=== PATIENT | female | born 1935 | race Caucasian/White ===

== ENCOUNTER 2016-05-09 09:30 | Outpatient (CLI) | payer MEDICARE, OTHER ==
[2016-05-09 12:45] LABS: #Basophils 0.1 thou/uL (0.0-0.2); #Eosinphils 0.2 thou/uL (0.0-0.7); #Lymphocytes 1.6 thou/uL (1.20-3.40); #Monocytes 0.5 thou/uL (0.11-0.59); #Neutrophils 4.1 thou/uL (1.40-6.50); %Basophils 1.6 % (0.0-1.0); %Eosinophils 3.2 % (0.0-10.0); %Lymphocytes 24.5 % (21.0-51.0); %Monocytes 7.1 % (0.0-10.0); %Neutrophils 63.7 % (42.0-75.0); Hemoglobin 12.6 g/dL (12.0-16.0); Mean Corpuscular HGB CONC 32.6 g/dL (32.0-36.0); Mean Corpuscular Hemoglobin 31.2 pg (27.0-31.0); Mean Corpuscular Volume 95.6 fl (81.0-99.0); Mean Platelet Volume 8.1 fL (7.4-10.4); Platelet Count 197 thou/uL (130-400); RBC Distribution Width 13.3 % (11.5-14.5); Red Blood Cell (RBC) Count 4.03 mill/uL (4.20-5.40); White Blood Cell (WBC) Count 6.4 thou/uL (4.8-10.8)
[2016-05-09 13:09] LABS: ALT (SGPT) 15 U/L (0-55); AST (SGOT) 19 U/L (5-34); Alkaline Phosphatase 68 U/L (40-150); Anion Gap 13 mmol/L (10-20); BUN (Urea Nitrogen) 21 mg/dL (9.8-20.1); Bilirubin, Direct 0.1 mg/dL (0.1-0.3); Bilirubin, Total 0.3 mg/dL (0.2-1.2); Calc. Creatinine Clearance 0 mL/min (70-130); Calcium 9.5 mg/dL (7.8-10.44); Carbon Dioxide 24 mmol/L (23-31); Cardiac Risk 3.5 (Less than 4.5); Chloride 108 mmol/L (98-107); Cholesterol 199 mg/dL (< 200 Desired); Estimated GFR-MDRD 55; Glucose 87 mg/dL (83-110); HDL Cholesterol 57 mg/dL (>60 Neg Risk); LDL Cholesterol, Calculated 120 mg/dL; Potassium 4.2 mmol/L (3.5-5.1); Protein, Total 6.3 g/dL (5.8-8.1); Sodium 141 mmol/L (136-145); Triglycerides 108 mg/dL (Less than 150)
[2016-05-09 13:42] LABS: Hemoglobin A1c 5.9 % (4.0-6.0)
== END 2016-05-09 09:31 | disposition home or self-care (01) ==
LOC: NAVSJIPCSP 09:30
PROVIDERS: ATTEND Nurse Practitioner Family
DX: Z51.89 Encounter for other specified aftercare (principal); E03.9 Hypothyroidism, unspecified; I25.10 Atherosclerotic heart disease of native coronary artery without angina pectoris
CPT/HCPCS: 36415; 80048; 80061; 80076; 83036; 84443; 85025

== ENCOUNTER 2016-08-09 08:31 | Outpatient (CLI) | payer MEDICARE ==
[2016-08-09 12:29] LABS: #Basophils 0.1 thou/uL (0.0-0.2); #Eosinphils 0.2 thou/uL (0.0-0.7); #Lymphocytes 1.2 thou/uL (1.20-3.40); #Monocytes 0.3 thou/uL (0.11-0.59); %Basophils 1.9 % (0.0-1.0); %Eosinophils 3.6 % (0.0-10.0); %Lymphocytes 24.8 % (21.0-51.0); %Monocytes 6.8 % (0.0-10.0); %Neutrophils 62.9 % (42.0-75.0); Hemoglobin 13.7 g/dL (12.0-16.0); Mean Corpuscular HGB CONC 31.9 g/dL (32.0-36.0); Mean Corpuscular Hemoglobin 29.5 pg (27.0-31.0); Mean Corpuscular Volume 92.5 fl (81.0-99.0); Mean Platelet Volume 7.6 fL (7.4-10.4); Platelet Count 210 thou/uL (130-400); RBC Distribution Width 13.1 % (11.5-14.5); Red Blood Cell (RBC) Count 4.63 mill/uL (4.20-5.40); White Blood Cell (WBC) Count 4.8 thou/uL (4.8-10.8)
[2016-08-09 12:41] LABS: Bilirubin Negative (Negative); Blood, Urine Negative (Negative); Clarity Clear (Clear); Glucose, Urine (Dipstick) Negative (Negative); Leukocyte Small (Negative); Nitrite Negative (Negative); Protein, Urine (Dipstick) Negative (Neg-Trace); Urobilinogen 0.2 mg/dL (0.2-1.0); pH, Urine 5.5 (5.0-9.0)
[2016-08-09 12:49] LABS: ALT (SGPT) 23 U/L (8-55); AST (SGOT) 25 U/L (5-34); Albumin 4.3 g/dL (3.4-4.8); Alkaline Phosphatase 73 U/L (40-150); Anion Gap 17 mmol/L (10-20); BUN (Urea Nitrogen) 20 mg/dL (9.8-20.1); Bilirubin, Direct 0.1 mg/dL (0.1-0.3); Bilirubin, Total 0.3 mg/dL (0.2-1.2); Calc. Creatinine Clearance 0 mL/min (70-130); Calcium 9.2 mg/dL (7.8-10.44); Carbon Dioxide 21 mmol/L (23-31); Chloride 107 mmol/L (98-107); Cholesterol 246 mg/dl (< 200 Desired); Estimated GFR-MDRD 53; Glucose 97 mg/dL (83-110); HDL Cholesterol 61 mg/dL (>60 Neg Risk); LDL Cholesterol, Calculated 166 mg/dL; Potassium 4.3 mmol/L (3.5-5.1); Protein, Total 6.7 g/dL (6.0-8.3); Sodium 141 mmol/L (136-145); Triglycerides 96 mg/dL (Less than 150)
[2016-08-09 13:03] LABS: Hemoglobin A1c 5.7 % (4.0-6.0)
[2016-08-09 13:29] LABS: RBC/HPF 0-3 HPF (0-3); Squamous Epithelial 0-3 HPF (0-3); WBC/HPF 0-3 HPF (0-3)
[2016-08-09 13:30] LABS: Bacteria/HPF Rare-Few HPF (None Seen); Transitional Epithelial 0-3 HPF (0-3)
== END 2016-08-09 08:32 | disposition home or self-care (01) ==
LOC: NAVSJIPCSP 08:31
PROVIDERS: ATTEND Family Medicine
DX: E03.9 Hypothyroidism, unspecified (principal); I25.10 Atherosclerotic heart disease of native coronary artery without angina pectoris; M35.3 Polymyalgia rheumatica; Z79.899 Other long term (current) drug therapy
CPT/HCPCS: 36415; 80048; 80061; 80076; 81003; 81015; 83036; 84443; 85025

== ENCOUNTER 2018-05-31 11:56 | Emergency (ER) | payer MEDICARE ==
[2018-05-31 13:00] LABS: #Basophils 0.1 thou/uL (0.0-0.2); #Eosinphils 0.2 thou/uL (0.0-0.7); #Lymphocytes 1.3 thou/uL (1.20-3.40); #Monocytes 0.5 thou/uL (0.11-0.59); #Neutrophils 4.2 thou/uL (1.40-6.50); %Basophils 1.5 % (0.0-1.0); %Eosinophils 2.5 % (0.0-10.0); %Lymphocytes 20.1 % (21.0-51.0); %Neutrophils 67.8 % (42.0-75.0); Hemoglobin 14.8 g/dL (12.0-16.0); Mean Corpuscular HGB CONC 31.7 g/dL (32.0-36.0); Mean Corpuscular Hemoglobin 30.6 pg (27.0-31.0); Mean Corpuscular Volume 96.6 fL (78.0-98.0); Mean Platelet Volume 7.8 fL (7.4-10.4); Platelet Count 143 thou/uL (130-400); RBC Distribution Width 11.9 % (11.5-14.5); Red Blood Cell (RBC) Count 4.82 mill/uL (4.20-5.40); White Blood Cell (WBC) Count 6.2 thou/uL (4.8-10.8)
[2018-05-31 13:17] LABS: ALT (SGPT) 28 U/L (8-55); AST (SGOT) 30 U/L (5-34); Albumin 4.6 g/dL (3.4-4.8); Alkaline Phosphatase 49 U/L (40-150); Anion Gap 14 mmol/L (10-20); BUN (Urea Nitrogen) 21 mg/dL (9.8-20.1); Bilirubin, Total 0.5 mg/dL (0.2-1.2); Calc. Creatinine Clearance 0 mL/min (70-130); Calcium 9.9 mg/dL (7.8-10.44); Carbon Dioxide 26 mmol/L (23-31); Chloride 105 mmol/L (98-107); Estimated GFR-MDRD 51; Globulin 2.5 g/dL (2.4-3.5); Glucose 94 mg/dL (83-110); Potassium 4.1 mmol/L (3.5-5.1); Protein, Total 7.1 g/dL (6.0-8.3); Sodium 141 mmol/L (136-145)
--- NOTE | 2018-05-31 13:21 | CT ---
CT Brain WO Con: 05/31/2018 12:42 PM CLINICAL HISTORY: Syncope. COMPARISON: None. FINDINGS: Hemorrhage: None. Ventricular system: Enlarged, likely due to compensatory dilatation as result of moderate global atro phy and periventricular white matter disease. Cerebral parenchyma: Microvascular ischemic disease. 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 Midline shift: None. Mass: No mass effect. Calvarium: Normal. Visualized Paranasal sinuses: Clear. 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 IMPRESSION: No acute intracranial hemorrhage or mass effect. Global atrophy and ventriculomegaly. Moderate chronic ischemic disease. 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
--- NOTE | 2018-05-31 13:27 | RAD ---
XR Hip Lt 2-3 View: 05/31/2018 12:43 PM CLINICAL INDICATION: Injury with pain COMPARISON: 01/06/2016 FINDINGS: Fracture:No fracture. Arthropathy:Moderate arthropathy. Incidental findings:Partially imaged hardware at the low lumbar spine IMPRESSION: 1. No acute osseous abnormality.
--- NOTE | 2018-05-31 13:28 | RAD ---
XR Lumbar Spine 2 Or 3 View: 05/31/2018 12:43 PM CLINICAL INDICATION: Fall with low back pain COMPARISON: None. FINDINGS: Fracture:No fracture. Multilevel posterior fusion spans L4-S1, with intervening disc space prostheses. Incidental findings:Atherosclerosis. Metallic clips of right upper abdomen. Levoscoliosis of lumbar spine present. IMPRESSION: 1. No acute osseous abnormality.
[2018-05-31 13:53] LABS: Bilirubin Negative (Negative); Blood, Urine Trace (Negative); Glucose, Urine (Dipstick) Negative (Negative); Leukocyte Small (Negative); Nitrite Negative (Negative); Protein, Urine (Dipstick) Negative (Neg-Trace); Specific Gravity, Urine 1.015 (1.005-1.030); Urobilinogen 0.2 mg/dL (0.2-1.0)
[2018-05-31 13:56] LABS: Clarity SL HAZY (Clear)
[2018-05-31 14:02] LABS: Bacteria/HPF 4+ HPF (None Seen); RBC/HPF 0-3 HPF (0-3); Renal Epithelial 0-3 HPF (0-3); Squamous Epithelial 0-3 HPF (0-3); WBC/HPF 0-3 HPF (0-3)
[2018-05-31] MEDS ORDERED: Cipro 250 MG TAB ONE (14:06)
== END 2018-05-31 14:26 | disposition home or self-care (01) ==
LOC: NAV ERS 11:56
DX: S70.02XA Contusion of left hip, initial encounter (principal); S70.312A Abrasion, left thigh, initial encounter; E86.0 Dehydration; N39.0 Urinary tract infection, site not specified; E78.5 Hyperlipidemia, unspecified; I10 Essential (primary) hypertension; Z86.73 Personal history of transient ischemic attack (TIA), and cerebral infarction without residual deficits; K21.9 Gastro-esophageal reflux disease without esophagitis; Z79.899 Other long term (current) drug therapy; Z79.82 Long term (current) use of aspirin; W22.8XXA Striking against or struck by other objects, initial encounter
CPT/HCPCS: 70450; 72100; 80053; 81003; 81015; 84484; 85025; 87077; 87086; 87186; 93005

== ENCOUNTER 2018-07-19 20:13 | Emergency (ER) | payer MEDICARE ==
--- NOTE | 2018-07-19 21:09 | RAD ---
CHEST TWO VIEW 07/19/18 HISTORY: Cough. COMPARISON: Chest radiograph May 2017. FINDINGS: The lungs are mildly hyperinflated. No pneumothorax. No effusion. Heart size upper limits of normal. Dual lead pacer in good position. No osseous abnormality. IMPRESSION: No acute intrathoracic abnormality. POS: HOME
[2018-07-19] MEDS ORDERED: Azithromycin 250 MG TAB ONE (21:12)
[2018-07-19] MEDS ORDERED: methylPREDNISolone Acetate 40 mg/ml Vial ONE (21:12)
== END 2018-07-19 21:40 | disposition home or self-care (01) ==
LOC: NAV ERS 20:13
DX: J20.8 Acute bronchitis due to other specified organisms (principal); E03.9 Hypothyroidism, unspecified; E78.5 Hyperlipidemia, unspecified; I10 Essential (primary) hypertension; K21.9 Gastro-esophageal reflux disease without esophagitis; Z86.73 Personal history of transient ischemic attack (TIA), and cerebral infarction without residual deficits; Z79.82 Long term (current) use of aspirin; Z79.899 Other long term (current) drug therapy
CPT/HCPCS: 71046; 96372; J1030

== ENCOUNTER 2018-07-29 08:18 | Outpatient (CLI) | payer MEDICARE ==
--- NOTE | 2018-07-29 08:29 | RAD ---
XR Chest Pa Lat STANDARD HISTORY: Cough COMPARISON: 07/19/2018 FINDINGS: The heart size is normal. The lungs are well expanded without focal areas of consolidation, pneumothorax or pleural effusions. Left-sided pacemaker device remains in place. No acute osseous abnormalities are seen. IMPRESSION: No radiographic evidence of acute cardiopulmonary process.
== END 2018-07-29 08:19 | disposition home or self-care (01) ==
LOC: NAV RAD 08:18
PROVIDERS: ATTEND Family Medicine
DX: R05 Cough (principal)
CPT/HCPCS: 71046

== ENCOUNTER 2018-11-19 10:24 | Emergency (ER) | payer MEDICARE ==
[2018-11-19] MEDS ORDERED: Ondansetron PF 4 MG/2 ML Vial ONE ×2 (11:11→11:49)
[2018-11-19] MEDS ORDERED: Sodium Chloride 0.9% 1,000 ML ONE (11:11)
[2018-11-19 11:32] LABS: #Basophils 0.1 thou/uL (0.0-0.2); #Lymphocytes 1.4 thou/uL (1.20-3.40); #Monocytes 0.8 thou/uL (0.11-0.59); #Neutrophils 4.7 thou/uL (1.40-6.50); %Basophils 1.4 % (0.0-1.0); %Eosinophils 0.7 % (0.0-10.0); %Lymphocytes 20.3 % (21.0-51.0); %Monocytes 10.9 % (0.0-10.0); %Neutrophils 66.7 % (42.0-75.0); Hemoglobin 14.5 g/dL (12.0-16.0); Mean Corpuscular HGB CONC 32.4 g/dL (32.0-36.0); Mean Corpuscular Hemoglobin 31.1 pg (27.0-31.0); Mean Corpuscular Volume 96.2 fL (78.0-98.0); Mean Platelet Volume 7.7 fL (7.4-10.4); Platelet Count 121 thou/uL (130-400); RBC Distribution Width 11.5 % (11.5-14.5); Red Blood Cell (RBC) Count 4.65 mill/uL (4.20-5.40); White Blood Cell (WBC) Count 7.1 thou/uL (4.8-10.8)
--- NOTE | 2018-11-19 11:43 | CT ---
CT OF BRAIN PERFORMED WITHOUT CONTRAST ENHANCEMENT: Date: 11/19/18 HISTORY: Syncope. History of brain aneurysm. COMPARISON: 05/31/18 study. FINDINGS: There is marked ventricular and sulcal prominence with decreased attenuation to the periventricular w enoc matter consistent with chronic white matter change. A right-sided aneurysm coil is seen along th e right side of the [place], unchanged since the prior exam. IMPRESSION: Atrophy and chronic white matter change. No acute intracranial abnormalities. Stable exam. POS: [facility]
--- NOTE | 2018-11-19 11:44 | RAD ---
PA AND LATERAL CHEST: Date: 11/19/18 HISTORY: Syncope. COMPARISON: 07/29/18. FINDINGS: Heart size is upper limits. There is a pacemaker present. Lungs are clear of infiltrates. There are s ome atherosclerotic changes of the aorta. No signs of failure. The bones appear demineralized. IMPRESSION: No active intrathoracic disease. POS: [facility]
[2018-11-19 11:50] LABS: ALT (SGPT) 22 U/L (8-55); AST (SGOT) 23 U/L (5-34); Albumin 4.8 g/dL (3.4-4.8); Alkaline Phosphatase 53 U/L (40-110); Anion Gap 15 mmol/L (10-20); BUN (Urea Nitrogen) 17 mg/dL (9.8-20.1); Bilirubin, Total 0.7 mg/dL (0.2-1.2); Calc. Creatinine Clearance 0 mL/min (70-130); Calcium 9.9 mg/dL (7.8-10.44); Carbon Dioxide 22 mmol/L (23-31); Chloride 105 mmol/L (98-107); Estimated GFR-MDRD 59; Globulin 2.2 g/dL (2.4-3.5); Glucose 82 mg/dL (83-110); Potassium 4.1 mmol/L (3.5-5.1); Sodium 138 mmol/L (136-145)
[2018-11-19 12:10] LABS: Bilirubin Negative (Negative); Blood, Urine Moderate (Negative); Clarity Clear (Clear); Glucose, Urine (Dipstick) Negative (Negative); Leukocyte Trace (Negative); Nitrite Negative (Negative); Protein, Urine (Dipstick) Negative (Neg-Trace); Urobilinogen 0.2 mg/dL (Less than 2)
[2018-11-19 12:20] LABS: Bacteria/HPF 2+ HPF (None Seen); Squamous Epithelial 0-3 HPF (0-3); WBC/HPF 0-3 HPF (0-3)
[2018-11-19] MEDS ORDERED: cloNIDine 0.2 MG TAB ONE (12:31)
== END 2018-11-19 13:17 | disposition short-term general hospital (02) ==
LOC: NAV ERS 10:24
DX: I16.0 Hypertensive urgency (principal); I10 Essential (primary) hypertension; R11.0 Nausea; I49.9 Cardiac arrhythmia, unspecified; E03.9 Hypothyroidism, unspecified; E78.5 Hyperlipidemia, unspecified; E78.00 Pure hypercholesterolemia, unspecified; K21.9 Gastro-esophageal reflux disease without esophagitis; Z86.73 Personal history of transient ischemic attack (TIA), and cerebral infarction without residual deficits; Z79.82 Long term (current) use of aspirin; Z79.899 Other long term (current) drug therapy
CPT/HCPCS: 70450; 71046; 80053; 81003; 81015; 84484; 85025; 96361; 96374; J2405; J7050

== ENCOUNTER 2018-11-22 10:17 | Emergency (ER) | payer MEDICARE | END 2018-11-22 11:13 | disposition home or self-care (01) | LOC: NAV ERS 10:17 | DX: I10 Essential (primary) hypertension (principal); E03.9 Hypothyroidism, unspecified; K21.9 Gastro-esophageal reflux disease without esophagitis; E78.5 Hyperlipidemia, unspecified; E78.00 Pure hypercholesterolemia, unspecified; Z86.73 Personal history of transient ischemic attack (TIA), and cerebral infarction without residual deficits; Z79.82 Long term (current) use of aspirin; Z79.899 Other long term (current) drug therapy | CPT/HCPCS: 99283 ==

== ENCOUNTER 2018-12-03 09:03 | Emergency (ER) | payer MEDICARE ==
--- NOTE | 2018-12-03 10:09 | RAD ---
Exam: Chest one view 3 views right ribs HISTORY: Fall. Pain. FINDINGS: 1. View chest: Atherosclerosis of the aortic knob. Normal cardiac silhouette. Lungs and pleural space s are clear. No pneumothorax. Left-sided transvenous pacemaker with lead positioned in the region of the right atrium and right ventricle. Right rib series: No acute fracture. No cortical irregularity or periosteal reaction. Old posterior r ight eighth rib fracture is noted. IMPRESSION: 1. No acute cardiopulmonary process. 2. Old posterior right eighth rib fracture. No acute right rib fractures.
== END 2018-12-03 10:27 | disposition home or self-care (01) ==
LOC: NAV ERS 09:03
DX: S20.211A Contusion of right front wall of thorax, initial encounter (principal); E03.9 Hypothyroidism, unspecified; E78.5 Hyperlipidemia, unspecified; E78.00 Pure hypercholesterolemia, unspecified; K21.9 Gastro-esophageal reflux disease without esophagitis; I10 Essential (primary) hypertension; G58.8 Other specified mononeuropathies; Z86.73 Personal history of transient ischemic attack (TIA), and cerebral infarction without residual deficits; Z79.82 Long term (current) use of aspirin; Z79.899 Other long term (current) drug therapy; W17.89XA Other fall from one level to another, initial encounter

== ENCOUNTER 2020-12-01 13:18 | Outpatient (CLI) | payer MEDICARE | END 2020-12-01 13:19 | disposition home or self-care (01) | LOC: NAV RAD 13:18 | PROVIDERS: ATTEND Family Medicine | DX: R05.9 Cough, unspecified (principal) | CPT/HCPCS: 71046 ==

== ENCOUNTER 2020-12-04 10:44 | Emergency (ER) | payer MEDICARE ==
[2020-12-04] MEDS ORDERED: Albuterol Sulfate 2.5 mg/0.5 ml Neb ONE (11:20)
[2020-12-04 20:21] LABS: SARS-CoV-2 PCR by NAA Not Detected (NotDetected)
== END 2020-12-04 12:13 | disposition home or self-care (01) ==
LOC: NAV ERS 10:44
DX: J20.9 Acute bronchitis, unspecified (principal); Z20.822 Contact with and (suspected) exposure to COVID-19; G58.9 Mononeuropathy, unspecified; I49.9 Cardiac arrhythmia, unspecified; K21.9 Gastro-esophageal reflux disease without esophagitis; E03.9 Hypothyroidism, unspecified; E78.5 Hyperlipidemia, unspecified; E78.00 Pure hypercholesterolemia, unspecified; I10 Essential (primary) hypertension; Z79.899 Other long term (current) drug therapy; Z79.82 Long term (current) use of aspirin
CPT/HCPCS: 71045; 99283; U0003; U0005; J7611

== ENCOUNTER 2021-04-22 12:51 | Emergency (ER) | payer MEDICARE ==
[2021-04-22] MEDS ORDERED: Acetaminophen 325 MG TAB ONE (13:25)
[2021-04-23 20:14] LABS: SARS-CoV-2 PCR by NAA Not Detected (NotDetected)
== END 2021-04-22 14:21 | disposition home or self-care (01) ==
LOC: NAV ERS 12:51
DX: J10.1 Influenza due to other identified influenza virus with other respiratory manifestations (principal); J45.909 Unspecified asthma, uncomplicated; E03.9 Hypothyroidism, unspecified; K21.9 Gastro-esophageal reflux disease without esophagitis; E78.5 Hyperlipidemia, unspecified; E78.00 Pure hypercholesterolemia, unspecified; I10 Essential (primary) hypertension; G58.9 Mononeuropathy, unspecified; Z20.822 Contact with and (suspected) exposure to COVID-19; Z86.73 Personal history of transient ischemic attack (TIA), and cerebral infarction without residual deficits; Z79.82 Long term (current) use of aspirin; Z79.899 Other long term (current) drug therapy
CPT/HCPCS: 71046; 87804; 94640; 94664; J7620; U0003; U0005

== ENCOUNTER 2022-10-01 14:08 | Emergency (ER) | payer MEDICARE | END 2022-10-01 15:45 | disposition home or self-care (01) | LOC: NAV ERS 14:08 | DX: S46.011A Strain of muscle(s) and tendon(s) of the rotator cuff of right shoulder, initial encounter (principal); S22.39XA Fracture of one rib, unspecified side, initial encounter for closed fracture; E03.9 Hypothyroidism, unspecified; K21.9 Gastro-esophageal reflux disease without esophagitis; E78.00 Pure hypercholesterolemia, unspecified; I10 Essential (primary) hypertension; Z79.899 Other long term (current) drug therapy; Z79.82 Long term (current) use of aspirin; X50.1XXA Overexertion from prolonged static or awkward postures, initial encounter ==

== ENCOUNTER 2023-11-28 15:37 | Emergency (ER) | payer MEDICARE ==
[2023-11-28] MEDS ORDERED: Bacitracin 1 PK ONE (15:50)
[2023-11-28] MEDS ORDERED: Boostrix 0.5 ML (Tdap) VIAL (>/=7 yrs of age) ONE (15:50)
[2023-11-28] MEDS ORDERED: Acetaminophen 500 MG TAB ONE (15:51)
== END 2023-11-28 17:57 | disposition home or self-care (01) ==
LOC: NAV ERS 15:37
DX: S61.511A Laceration without foreign body of right wrist, initial encounter (principal); S51.011A Laceration without foreign body of right elbow, initial encounter; S41.011A Laceration without foreign body of right shoulder, initial encounter; E78.00 Pure hypercholesterolemia, unspecified; E03.9 Hypothyroidism, unspecified; I10 Essential (primary) hypertension; Z86.73 Personal history of transient ischemic attack (TIA), and cerebral infarction without residual deficits; Z23 Encounter for immunization; Z79.82 Long term (current) use of aspirin; Z79.899 Other long term (current) drug therapy; V00.181A Fall from other rolling-type pedestrian conveyance, initial encounter
CPT/HCPCS: 90471; 90715

== ENCOUNTER 2024-02-06 09:38 | Emergency (ER) | payer MEDICARE ==
[2024-02-06 10:35] LABS: #Basophils 0.1 thou/uL (0.0-0.2); #Eosinophils 0.1 thou/uL (0.0-0.7); #Lymphocytes 1.2 thou/uL (1.20-3.40); #Monocytes 0.6 thou/uL (0.11-0.59); #Neutrophils 3.7 thou/uL (1.40-6.50); %Basophils 1.2 % (0.0-1.0); %Eosinophils 2.5 % (0.0-10.0); %Lymphocytes 20.6 % (21.0-51.0); %Neutrophils 65.8 % (42.0-75.0); Hematocrit 43.2 % (36.0-47.0); Hemoglobin 13.7 g/dL (12.0-16.0); Mean Corpuscular HGB CONC 31.6 g/dL (32.0-36.0); Mean Corpuscular Hemoglobin 29.4 pg (27.0-31.0); Mean Corpuscular Volume 92.9 fl (78.0-98.0); Platelet Count 138 10x3/uL (130-400); RBC Distribution Width 11.8 % (11.5-14.5); Red Blood Cell (RBC) Count 4.65 mill/uL (4.20-5.40); White Blood Cell (WBC) Count 5.6 10x3/uL (4.8-10.8)
[2024-02-06 10:48] LABS: Acetaminophen Less than 10 mcg/mL (Less than 10); Alcohol Less than 10.0 mg/dL (Less than 10); Salicylate Less than 8.0 mg/dL (Less than 8.0)
[2024-02-06] MEDS ORDERED: Bacitracin 1 PK ONE (10:50)
[2024-02-06 10:53] LABS: Troponin I 0.139 ng/mL (< 0.028)
[2024-02-06 10:58] LABS: ALT (SGPT) 15 U/L (8-55); AST (SGOT) 18 U/L (5-34); Albumin 3.9 g/dL (3.4-4.8); Alkaline Phosphatase 55 U/L (40-110); Anion Gap 10 mmol/L (10-20); BUN (Urea Nitrogen) 13 mg/dL (9.8-20.1); Bilirubin, Total 0.7 mg/dL (0.2-1.2); Calc. Creatinine Clearance 0 mL/min (70-130); Calcium 9.2 mg/dL (7.8-10.44); Carbon Dioxide 24 mmol/L (23-31); Chloride 109 mmol/L (98-107); Estimated GFR 62; Globulin 2.5 g/dL (2.4-3.5); Glucose 117 mg/dL (83-110); Potassium 4.2 mmol/L (3.5-5.1); Protein, Total 6.4 g/dL (5.8-8.1); Sodium 139 mmol/L (136-145)
[2024-02-06] MEDS ORDERED: Aspirin Chewable 81 MG TAB ONE (11:02)
[2024-02-06] MEDS ORDERED: Nitroglycerin 2% Ointment 1 INCH/1 GM Packet ONE (11:03)
[2024-02-06 13:10] LABS: Bilirubin Negative (Negative); Blood, Urine Trace (Negative); Glucose, Urine (Dipstick) Negative (Negative); Ketone, Urine Negative (Negative); Leukocyte Trace (Negative); Nitrite Negative (Negative); Protein, Urine (Dipstick) Negative (Neg-Trace); Specific Gravity, Urine 1.015 (1.005-1.030); Urobilinogen 0.2 mg/dL (Less than 2)
[2024-02-06 13:18] LABS: Amphetamine Not Detected (NotDetected); Barbiturates Screen Not Detected (NotDetected); Benzodiazepine Screen Not Detected (NotDetected); Cocaine Metabolite Screen Not Detected (NotDetected); Methadone Not Detected (NotDetected); Methamphetamine Not Detected (NotDetected); Opiate Screen Not Detected (NotDetected); Oxycodone Screen Not Detected (NotDetected); Phencyclidine (PCP) Not Detected (NotDetected); THC/Cannabinoid Screen Not Detected (NotDetected); Tricyclic Screen Not Detected (NotDetected)
[2024-02-06] MEDS ORDERED: Lisinopril 20 MG TAB ONE (13:22)
[2024-02-06 13:24] LABS: Clarity Hazy (Clear)
[2024-02-06 13:27] LABS: Bacteria/HPF 4+ HPF (None Seen); CAUTI Indications for Culture Dysuria,urgency,freq; RBC/HPF 0-3 HPF (0-3); Squamous Epithelial 0-3 HPF (0-3)
[2024-02-06 13:28] LABS: Urine Culture Reflex No No
[2024-02-06 17:04] LABS: Troponin I 0.157 ng/mL (< 0.028)
[2024-02-06 18:16] LABS: Troponin I 0.157 ng/mL (< 0.028)
[2024-02-06] MEDS ORDERED: Acetaminophen 325 MG TAB ONE (21:36)
[2024-02-06] MEDS ORDERED: Benzonatate 100 MG CAP ONE (23:00)
[2024-02-07] MEDS ORDERED: Nitroglycerin 2% Ointment 1 INCH/1 GM Packet ONE (05:06)
[2024-02-07] MEDS ORDERED: Lisinopril 10 MG TAB ONE (05:06)
[2024-02-07] MEDS ORDERED: Acetaminophen 325 MG TAB ONE (08:35)
[2024-02-07] MEDS ORDERED: Ondansetron PF 4 MG/2 ML Vial ONE (08:36)
[2024-02-07] MEDS ORDERED: Metoprolol Tartrate 5 MG (5 mL) VIAL ONE (09:47)
== END 2024-02-06 10:01 | disposition short-term general hospital (02) ==
LOC: NAV ERS 09:38
DX: R55 Syncope and collapse (principal); S51.012A Laceration without foreign body of left elbow, initial encounter; R79.89 Other specified abnormal findings of blood chemistry; E78.00 Pure hypercholesterolemia, unspecified; E03.9 Hypothyroidism, unspecified; I10 Essential (primary) hypertension; Z79.899 Other long term (current) drug therapy; Z79.82 Long term (current) use of aspirin; Z86.73 Personal history of transient ischemic attack (TIA), and cerebral infarction without residual deficits
CPT/HCPCS: 71045; 80053; 80306; 80307; 81001; 84443; 84484; 85025; 93005; 96374; 96375; J2405